=== PATIENT | male | born 1950 | race Caucasian/White ===

== ENCOUNTER 2024-06-22 10:23 | Emergency (ER) | payer MEDICARE ==
[~2024-06-22] VITALS: Ht 175.3 cm; Wt 72.6 kg
[~2024-06-22 10:23] MED LIST: GABA100C PO; NEBI5TAB8 PO; PRAV20TA4 PO; TRAM50TA PO; WARF4TAB41 PO
[2024-06-22 10:29] VITALS: BP 158/78; TEMP 98.4
[2024-06-22] MEDS ORDERED: WARF4TAB72 PO (10:37)
[2024-06-22 10:41] VITALS: O2SAT 100
== END 2024-06-22 11:02 | disposition home or self-care (01) ==
LOC: ER 10:28
DX: Z76.0 Encounter for issue of repeat prescription (principal); I10 Essential (primary) hypertension; Z79.01 Long term (current) use of anticoagulants; Z79.899 Other long term (current) drug therapy; Z95.2 Presence of prosthetic heart valve